=== PATIENT | female | born 1980 ===

== ENCOUNTER 2022-02-23 05:55 | Day surgery (SDC) | payer OTHER ==
[~2022-02-23] VITALS: Ht 152.4 cm; Wt 77.1 kg
[2022-02-23] MEDS ORDERED: PERCOCET 5-3251 EACH PO (08:40)
== END 2022-02-23 15:35 | disposition home or self-care (01) ==
LOC: CIR.AMB 05:55 → SURG 12:15 → EDSTATUS 12:15 → CIR.AMB 12:15
PROVIDERS: ATTEND Surgery
DX: A63.0 Anogenital (venereal) warts (principal); K62.89 Other specified diseases of anus and rectum; K64.8 Other hemorrhoids; Z71.6 Tobacco abuse counseling; F17.210 Nicotine dependence, cigarettes, uncomplicated